=== PATIENT | female | born 1950 | race Two or more races ===

== ENCOUNTER 2017-10-13 14:40 | Emergency (ER) | payer OTHER ==
[2017-10-13] MEDS ORDERED: TRIBENZOR1 TA4 PO (15:38)
[2017-10-13] MEDS ORDERED: LOSARTAN POTASS25 M1 PO (15:38)
[2017-10-13 16:53] VITALS: BP 145/79
== END 2017-10-13 18:43 | disposition home or self-care (01) ==
LOC: ED 14:40
DX: R51 Headache (principal); R42 Dizziness and giddiness; I10 Essential (primary) hypertension